=== PATIENT | female | born 1945 | race American Indian/Alaskan Native ===

== ENCOUNTER → 2022-02-24 | Outpatient (REF) | payer MEDICARE, OTHER ==
[2022-02-24 17:59] LABS: OSMOLALITY URINE 265 MOSM/KG (50-1400)
[2022-02-24 18:15] LABS: SODIUM,RANDOM URINE 59 MEQ/L
[2022-02-24 18:27] LABS: FERRITIN 85 NG/ML (8-252); IRON (FE) 37 UG/DL (50-170); OSMOLALITY SERUM 276 MOSM/KG (280-301); PERCENT SATURATION 10.9 % (13.2-45.0); TOTAL IRON BINDING CAPACITY 339 UG/DL (250-450); TOTAL PROTEIN 7.2 GM/DL (6.4-8.2)
[2022-03-02 14:03] LABS: IMMUNOTYPING SERUM IGM ABNORMAL (NORMAL); IMMUNOTYPING SERUM KAPPA ABNORMAL (NORMAL)
[2022-03-02 14:42] LABS: ALBUMIN 4.31 GM/DL (3.29-5.55); ALBUMIN % 59.8 % (55.8-66.1); ALPHA-1-GLOBULIN % 3.9 % (2.9-4.9); ALPHA-1-GLOBULINS 0.28 GM/DL (0.17-0.41); ALPHA-2-GLOBULINS 0.62 GM/DL (0.42-0.99); ALPHA-2-GLOBULINS % 8.6 % (7.1-11.8); BETA-1-GLOBULINS 0.41 GM/DL (0.28-0.60); BETA-1-GLOBULINS % 5.7 % (4.7-7.2); BETA-2-GLOBULINS 0.23 GM/DL (0.19-0.55); BETA-2-GLOBULINS % 3.2 % (3.2-6.5); GAMMA GLOBULIN % 18.8 % (11.1-18.8); GAMMA GLOBULINS 1.35 GM/DL (0.65-1.58)
== END ==
LOC: M LAB REF 17:06
PROVIDERS: ATTEND Internal Medicine Nephrology
DX: N18.31 Chronic kidney disease, stage 3a (principal); E87.1 Hypo-osmolality and hyponatremia; E61.1 Iron deficiency

== ENCOUNTER → 2022-06-01 | Outpatient (CLI) | payer MEDICARE, OTHER ==
[~2022-06-01] MED LIST: ACET1TAB55 PO; ATEN50TA2 PO; FAMO40TA3; FENO135C6 PO; GNP250TA9 PO; MOME50SP2 NARES; SIMV20TA22 PO; SYNT75TA; VALA1TAB5 PO; VIT1TABL22 PO
== END ==
LOC: M RAD 15:15 → M LAB 15:15
PROVIDERS: ATTEND Internal Medicine Medical Oncology
DX: D47.2 Monoclonal gammopathy (principal)

== ENCOUNTER → 2022-07-08 | Outpatient (CLI) | payer MEDICARE, OTHER ==
[~2022-07-08] MED LIST changes: +LIDOCAINE 1% MDV 20ML VIAL As Ordered ONE
[2022-07-08 13:01] LABS: BASO # 0.1 10^3/uL (0.0-0.2); BASO % 0.9 % (0.0-1.0); EOS # 0.2 10^3/uL (0.0-0.5); EOS % 2.4 % (0.0-3.0); HEMATOCRIT 32.8 % (36.0-47.0); LYMPH # 4.2 10^3/uL (1.5-5.0); LYMPH % 43.4 % (24.0-44.0); MEAN CORPUSCULAR HEMOGLOBIN 29.5 pg (27.0-33.0); MEAN CORPUSCULAR HGB CONC 33.5 g/dl (32.0-36.5); MEAN CORPUSCULAR VOLUME 87.9 fl (80.0-96.0); MONO # 1.3 10^3/uL (0.0-0.8); MONO % 13.4 % (2.0-8.0); NEUTROPHILS # 3.8 10^3/uL (1.5-8.5); NEUTROPHILS % 39.7 % (36.0-66.0); PLATELET COUNT, AUTOMATED 395 10^3/uL (150-450); RED BLOOD COUNT 3.73 10^6/uL (4.00-5.40); WHITE BLOOD COUNT 9.6 10^3/uL (4.0-10.0)
[2022-07-08 13:21] VITALS: BP 154/68
== END ==
LOC: M IRPRO 12:23
PROVIDERS: ATTEND Internal Medicine Medical Oncology
DX: N18.9 Chronic kidney disease, unspecified (principal); D63.1 Anemia in chronic kidney disease

== ENCOUNTER → 2025-05-28 | Outpatient (REF) | payer MEDICARE, OTHER ==
[~2025-05-28] MED LIST changes: +AUGM500T34 PO; +BRIM0.2S13; +CETI10CH PO; -FAMO40TA3; +FAMO40TA3 PO; +LATA0.0015; -LIDOCAINE 1% MDV 20ML VIAL As Ordered ONE; +OMEG10002 PO; +POTA-298 PO; -SYNT75TA; +SYNT75TA PO; +XALA0.007 OU
[2025-05-28 18:18] LABS: ALT/SGPT 14.0 U/L (7.0-40); AST/SGOT 19.0 U/L (<34); CALCIUM LEVEL 9.6 MG/DL (8.3-10.6); CARBON DIOXIDE LEVEL 26.0 MMOL/L (20-31); CHLORIDE LEVEL 98.0 MMOL/L (98-107); CHOLESTEROL LEVEL 161.0 MG/DL (<200); CHOLESTEROL RISK RATIO 3.38 (<5); CREATININE FOR GFR 1.55 MG/DL (0.55-1.30); GLOMERULAR FILTRATION RATE 34.3 (>39); LDL CHOLESTEROL 80.6 MG/DL (<100); NON-HDL-C 113.4 MG/DL; POTASSIUM SERUM 4.4 MMOL/L (3.5-5.1); SODIUM LEVEL 135.0 MMOL/L (136-145); TRIGLYCERIDES LEVEL 164.0 MG/DL (<150)
[2025-05-28 18:49] LABS: ESTIMATED AVERAGE GLUCOSE 117.0 MG/DL (60-110)
== END ==
LOC: M LAB REF 17:23
PROVIDERS: ATTEND Internal Medicine
DX: E78.5 Hyperlipidemia, unspecified (principal); R73.01 Impaired fasting glucose; E03.9 Hypothyroidism, unspecified